=== PATIENT | male | born 1950 | race Caucasian/White ===

== ENCOUNTER → 2016-11-22 | Outpatient (CLI) | payer BC ==
[~2016-11-22] MED LIST: ALLEGRA ALLERG180 MG PO; ALLERGY4 MG PO; ASPIRIN EC81 MG PO; ASTELIN NA137 MCG/BO; BACTRIM DS 8001 TAB PO; CLARITIN 10MG T10 MG PO; CO Q-10-VIT E-1 EACH PO; COLACE GENERIC100 MG PO; DOC-Q-LACE100 MG PO; FISH OIL1000 MG PO; FLONASE 50 MCG16 GM; LANSOPRAZOLE15 MG PO; LEVAQUIN500 MG PO; LISINOPRIL10 MG PO; MECLIZINE25 MG PO; METOPROLOL50 MG PO; MIRALAX17 GM/DOSE PO; MUCINEX600 M1 PO; NORCO 325 MG-51 TAB PO; ONE DAILY ESS400 MCG PO; PHENERGAN W/CO473 ML PO; PROTONIX 40MG T40 MG PO; QNASL80 MCG/Act NS; SINGULAIR 10 MG10 MG PO; VIAGRA100 MG PO; VITAMIN D400 UNI1 PO; XYZAL5 MG PO; ZETIA10 MG PO; ZITHROMAX Z PA250 MG PO; ZOFRAN ODT4 MG PO; ZYRTEC 10MG TAB10 MG PO
--- NOTE | 2016-11-22 16:57 | RADIOLOGY REPORT PS360 ---
US RUQ-(ABD LTD)1ORGAN/QUAD/FU HISTORY: ELEVATED LIVER ENZYMES ORDERING PHYSICIAN: Meredith Gómez MD PATIENT AGE: 66 years COMPARISON: None FINDINGS: PANCREAS:Unremarkable. No obvious mass or abnormal fluid collection. No ductal dilatation LIVER:No focal liver lesions demonstrated. Homogeneous echogenicity. No intrahepatic biliary ductal dilatation evident. 8 mm cyst left hepatic lobe. Diffuse increased echogenicity of the liver consistent with hepatic steatosis with some scattered heterogeneous echogenicity RIGHT KIDNEY:Unremarkable. Normal size and echogenicity. GALLBLADDER:Gallbladder somewhat small. No shadowing stones, pericholecystic fluid, or wall thickening evident. No biliary dilatation. Common duct is 4 mm. IMPRESSION: 1. Hepatic steatosis with small hepatic cyst. 2. Small appearing gallbladder. No stones or other significant anomalies
== END ==
LOC: RAD 07:52
DX: R74.8 Abnormal levels of other serum enzymes (principal)

== ENCOUNTER → 2017-02-28 | Outpatient (CLI) | payer BC ==
--- NOTE | 2017-02-28 15:55 | RADIOLOGY REPORT PS360 ---
EXAM: LUMBAR SPINE 5 VIEWS HISTORY: RT SIDED LOW BACK PAIN ORDERING PHYSICIAN: Dylan Martinez MD PATIENT AGE: 67 years COMPARISON: 10/31/2011 FINDINGS: Normal alignment. No fracture or dislocation. No lytic or blastic change. Mild hypertrophic changes are present of the endplates at L3 and L4 similar to the previous exam. A small sclerotic focus involves inferior endplate of L1 at 9 mm. There is mild degenerative disc disease at L5-S1 and mild facet sclerotic changes at L4 and L5. IMPRESSION: 1. No acute finding. 2. Small sclerotic focus along the inferior endplate of L2 the radiology indeterminate. Possibly due to bone island but not readily apparent on the previous study. Consider short-term follow-up in 3 months to confirm stability. 3. Lumbar spondylosis with mild facet arthritic change at L4 and L5 degenerative disc disease at L5-S1 overall not significant changed
--- NOTE | 2017-02-28 15:56 | RADIOLOGY REPORT PS360 ---
[id number] VIEWS HISTORY: Right-sided pain RT SIDED LOW BACK PAIN ORDERING PHYSICIAN: Dylan Martinez MD PATIENT AGE: 67 years COMPARISON: 01/31/2014 FINDINGS: A frontal view of the chest shows hyperinflation with hyperlucency of the upper lobes consistent with COPD. Calcified granuloma left upper lobe. Multiple views of the right ribs were obtained. No fracture or dislocation. No lytic or blastic change. IMPRESSION: Negative RIBS. If pain persists, consider follow-up exam in 7-[address] with 3-D reformats. COPD
== END ==
LOC: RAD 10:28
DX: M54.5 Low back pain (principal)